=== PATIENT | female | born 1970 | race Hispanic/Latino ===

== ENCOUNTER → 2017-11-28 | Outpatient (CLI) | payer OTHER | LOC: MAMMO 10:17 | PROVIDERS: ATTEND Internal Medicine | DX: Z12.31 Encounter for screening mammogram for malignant neoplasm of breast (principal) | CPT/HCPCS: 77067 ==

== ENCOUNTER → 2017-12-11 | Outpatient (CLI) | payer OTHER ==
--- NOTE | 2017-12-12 08:48 | Diagnostic Imaging Report ---
#[id number] - USBRECOMLT ULTRASOUND OF THE LEFT BREAST : 12/11/2017 Comparison is made to exams dated: 11/28/2017 mammogram and 07/17/2016 mammogram - [facility]. Color flow and real-time ultrasound were performed on the entire left breast with scanning in all four quadrants, retroareolar region and the left axilla. There are at least 8 cystic lesions in the left breast with one at 10 o'clock 1 cm from the nipple measuring 9 x 7 x 10 mm with internal echoes likely internet sales representative of debris. This cystic lesion requires followup in six months. IMPRESSION: PROBABLY BENIGN - FOLLOW-UP RECOMMENDED A follow-up ultrasound in 6 months is recommended to demonstrate stability. The patient was notified of these findings and the need for followup. Ta Salinas Jr., D.O. cw/:12/11/2017 16:47:43 Radar Tester: JOSE BINGHAM RDMS, [facility] letter sent: Followup Recommended Ultrasound BI-RADS: 3 Probably benign
--- NOTE | 2017-12-12 08:48 | Diagnostic Imaging Report ---
#[id number] - USBRECOMRT ULTRASOUND OF THE RIGHT BREAST : 12/11/2017 Comparison is made to exams dated: 11/28/2017 mammogram and 07/17/2016 mammogram - [facility]. Color flow and real-time ultrasound were performed on the entire right breast with scanning in all four quadrants, retroareolar region and the right axilla. There are numerous (at least 11) cysts present in the right breast with a cluster of dominant cysts present at 12 o'clock. These cysts are palpable. One of the cysts at 12 o'clock has internal echoes likely representing debris or a solid lesion measuring 1.5 x 1.0 x 1.3 cm. This lesion requires followup in 6 months. IMPRESSION: PROBABLY BENIGN - FOLLOW-UP RECOMMENDED A follow-up ultrasound in 6 months is recommended to demonstrate stability. The patient was notified of these findings and the need for specific followup in 6 months. Ta Salinas Jr., D.O. cw/:12/11/2017 16:43:20 Ore Miner: JOSE BINGHAM RDMS, [facility] letter sent: Followup Recommended Ultrasound BI-RADS: 3 Probably benign
== END ==
LOC: US 12:35
PROVIDERS: ATTEND Internal Medicine
DX: N60.12 Diffuse cystic mastopathy of left breast (principal); N60.11 Diffuse cystic mastopathy of right breast

== ENCOUNTER → 2018-08-05 | Outpatient (CLI) | payer OTHER ==
--- NOTE | 2018-08-05 17:17 | Diagnostic Imaging Report ---
Hepatobiliary Scan with Gallbladder Ejection Fraction Clinical information: Cholelithiasis; intermittent abdominal pain x 6 months Technique: Following intravenous administration of 6.7 millicuries of Tc-99m mebrofenin, dynamic images of the abdomen in the anterior projection were obtained through 36 minutes. Sincalide (CCK analog) 1.1 micrograms was administered intravenously over 30 minutes with additional imaging for determination of gallbladder ejection fraction. Discussion: Perfusion of the liver is normal. Extraction of tracer by the liver parenchyma is normal. Tracer appears promptly within the biliary tract. The gallbladder begins to fill by 24 minutes post injection of tracer and fills adequately. Tracer is seen in the small bowel during the sincalide infusion. The gallbladder ejection fraction with sincalide is 13% (normal greater than 40%). Impression: 1. Filling of the gallbladder excludes acute cystic duct obstruction/acute cholecystitis. 2. The decreased gallbladder ejection fraction of 13% supports the clinical diagnosis of chronic cholecystitis/gallbladder dyskinesia. Signed by: Dr. Joyce Wilson M.D. on 08/05/2018 5:14 PM
== END ==
LOC: NM 08:34
PROVIDERS: ATTEND Internal Medicine
DX: K80.80 Other cholelithiasis without obstruction (principal)
CPT/HCPCS: 78227; 81025; A9537

== ENCOUNTER → 2018-09-10 | Day surgery (SDC) | payer OTHER ==
[2018-09-09 09:46] LABS: BASOPHILS % 0.4 % (0.0-1.0); EOSINOPHILS # (AUTO) 0.1 (0.0-0.4); EOSINOPHILS % 1.1 % (0.0-6.0); HEMOGLOBIN 15.8 g/dL (12.0-16.0); LYMPHOCYTES # (AUTO) 1.7 (1.0-3.2); MEAN CORPUSCULAR HEMOGLOBIN 30.9 pg (28-32); MEAN CORPUSCULAR HGB CONC 34.3 g/dL (31-35); MONOCYTES # (AUTO) 0.6 (0.2-0.8); MONOCYTES % 7.4 % (4.4-11.3); NEUTROPHILS # (AUTO) 5.4 (2.1-6.9); NEUTROPHILS % 68.7 % (38.7-80.0); PLATELET COUNT 314 x10e3/uL (140-360); RED BLOOD COUNT 5.11 x10e6/uL (3.6-5.1); RED CELL DISTRIBUTION WIDTH 12.3 % (11.7-14.4)
[2018-09-09 09:58] LABS: BILIRUBIN,URINE NEGATIVE (NEGATIVE); CLARITY,URINE SL CLOUDY (CLEAR); COLOR,URINE YELLOW (YELLOW); KETONES,URINE NEGATIVE (NEGATIVE); LEUKOCYTE ESTERASE ,URINE NEGATIVE (NEGATIVE); NITRITE,URINE NEGATIVE (NEGATIVE); PROTEIN,URINE DIPSTICK NEGATIVE (NEGATIVE); URINE UROBILINOGEN 0.2 mg/dL (0.2 - 1)
[2018-09-09 10:06] LABS: ALANINE AMINOTRANSFERASE 27 IU/L (0-55); ALBUMIN 4.1 g/dL (3.5-5.0); ALBUMIN/GLOBULIN RATIO 1.1 (0.8-2.0); ALKALINE PHOSPHATASE 93 IU/L (40-150); ANION GAP 13.2 mmol/L (8-16); BLOOD UREA NITROGEN 17 mg/dL (7-26); BUN/CREATININE RATIO 23 (6-25); CALCIUM 9.7 mg/dL (8.4-10.2); CARBON DIOXIDE 31 mmol/L (22-29); CHLORIDE 99 mmol/L (98-107); CREATININE, SERUM 0.75 mg/dL (0.57-1.11); EST GLOMERULAR FILTRATION RATE > 60 ML/MIN (60-); GLUCOSE 94 mg/dL (74-118); POTASSIUM 3.2 mmol/L (3.5-5.1); SODIUM 140 mmol/L (136-145)
[~2018-09-10] MED LIST: ADVIL100 M1 PO; AMLODIPINE BESY10 MG PO; BUPIVACAINE 0.25%/EPI 30ML SDV INJ ONE; DEXAMETHASONE SOD PHOS INJ 4 MG/ML VIAL ONE; FENTANYL CITRATE/PF 100MCG/2 ML INJ ONE; GLYCOPYRROLATE INJ 1MG/ 5 ML SYR ONE; HYDROCHLOROTHIA25 MG PO; HYDROCODONE/APAP 7.5MG-325MG 1 EA TAB ONE; KETOROLAC TROMETHAMINE 30 MG/ML VIAL ONE; LIDOCAINE HCL 2% LOCAL INJ 5 ML SDV VIAL INJ ONE; MIDAZOLAM HCL 2 MG/2 ML VIAL ONE; NEOSTIGMINE 5 MG/5ML SYR ONE; ONDANSETRON HCL INJ 2MG/ML 2ML 2 MG/ML VIAL ONE; PROPOFOL IV EMULSION 10 MG/ML 20 ML VIAL ONE; ROCURONIUM BROMIDE 10 MG/ML 5ML VIAL ONE; SEVOFLURANE INHAL SOLN 250 ML PEN BTL ONE
--- OUTSIDE RECORDS SUMMARY | 2018-09-10 08:20 | XMS REPORT | Clinical Summary ---
Author Author [facility] Address Unknown Phone Unavailable Care Team Providers Care Books Salesperson Name Role Phone Asked, No Pcp PCP Unavailable Allergies Comments Active Allergy Reactions Severity Noted Date Sulfa (Sulfonamide 08/19/2017 Antibiotics) Medications End Date Status Medication Sig Dispensed Refills Start Date Active amlodipine-benazepril Take 1 0 (LOTREL) 10-20 mg per capsule by capsule mouth daily. Active HYDROcodone-acetaminophen Take 1 tablet 0 (NORCO) 7.5-325 mg per by mouth 3 8 tablet (three) times a day. 09/18/2017 tamsulosin (FLOMAX) 0.4 Take 1 30 capsule 0 201 mg capsule,extended capsule (0.4 8 release 24hr mg total) by mouth daily for 30 days. Active Problems Not on file Social History Date Tobacco Use Types Packs/Day Years Used Never Smoker Smokeless Tobacco: Never Used Alcohol Use Drinks/Week oz/Week Comments Yes social Sex Assigned at Date Recorded Not on file Industry Job Start Date Occupation Not on file Not on file Not on file Travel End Travel History Travel Start No recent travel history available. Last Filed Vital Signs Not on file Plan of Treatment Health Maintenance Due Date Last Done Comments INFLUENZA VACCINE 10/02/2018 Results Not on fileafter 09/09/2017 Insurance Type Payer Benefit Subscriber ID Effective Phone Address Plan / Dates Group HMO AETNA AETNA xxxxxxxxxx 2017- HMO,POS,EP Present O, [facility] (Home) [place] [address] Advance Directives Patient has advance care planning documents on file. For more information, lakia rosado contact: Clyde De Leon [address] [place] [address]
--- OUTSIDE RECORDS SUMMARY | 2018-09-10 08:20 | XMS REPORT ---
[facility] Address Unknown Phone Unavailable Care Team Providers Care Manager State Name Role Phone TOMASA HILL Unavailable Unavailable Problems This patient has no known problems. Allergies, Adverse Reactions, Alerts This patient has no known allergies or adverse reactions. Medications This patient has no known medications. Results Test Description Test Time Test Comments Text Results Atomic Results Result Comments HEPTOBILIARY W PHARM 2018-08-05 17:12:00 [place] [address] Patient Name: JOSE ALBERTO ARMENDARIZ MR #: [id number] : 1970 Age/Sex: 47/F Req #: [id number] [facility] Physician: Ordered by: TOMASA HILL MD Report #: [id number] Location: [place] Room/Bed: Procedure: [id number] NM/HEPTOBILIARY W PHARM Exam Date: 08/05/18 Exam Time: 0845 REPORT STATUS: Signed Hepatobiliary Scan with Gallbladder Ejection Fraction Clinical information: Cholelithiasis; intermittent abdominal pain x 6 months Technique: Following intravenous administration of 6.7 millicuries of Tc-99m mebrofenin, dynamic images of the abdomen in the anterior projection were obtained through 36 minutes. Sincalide (CCK analog) 1.1 micrograms was administered intravenously over 30 minutes with additional imaging for determination of gallbladder ejection fraction. Discussion: Perfusion of the liver is normal. Extraction of tracer by the liver parenchyma is normal. Tracer appears promptly within the biliary tract. The gallbladder begins to fill by 24 minutes post injection of tracer and fills adequately. Tracer is seen in the small bowel during the sincalide infusion. The gallbladder ejection fraction with sincalide is 13% (normal greater than 40%). Impression: 1. Filling of the gallbladder excludes acute cystic duct obstruction/acute cholecystitis. 2. The decreased gallbladder ejection fraction of 13% supports the clinical diagnosis of chronic cholecystitis/gallbladder dyskinesia. Signed by: Dr. Gerry Wilson M.D. on 08/05/2018 5:14 PM Dictated By: GERRY WILSON MD 13 Transcribed By: GERMAN on 08/05/181713 COPY TO: TOMASA HILL MD US BREAST COMPLETE RIGHT 2017-12-11 13:37:00 [place] [address] Patient Name: JOSE ALBERTO ARMENDARIZ MR #: [id number] : 1970 Age/Sex: 47/F Req #: [id number] Adm Physician: Ordered by: TOMASA HILL MD Report #: [id number] Location: Room/Bed: Procedure: [id number] US/US BREAST COMPLETE RIGHT Exam Date: 12/11/17 Exam Time: 1255 REPORT STATUS: Signed #[id number] - USBRECOMRT ULTRASOUND OF THE RIGHT BREAST : 12/11/2017 Comparison is made to exams dated: 11/28/2017 mammogram and 07/17/2016 mammogram - [facility]. Color flow and real-time ultrasound were performed on the entire right breast with scanning in all four quadrants, retroareolar region and the right axilla. There are numerous (at least 11) cysts present in the right breast with a cluster of dominant cysts present at 12 o'clock. These cysts are palpable. One of the cysts at 12 o'clock has internal echoes likely representing debris or a solid lesion measuring 1.5 x 1.0 x 1.3 cm. This lesion requires followup in 6 months. IMPRESSION: PROBABLY BENIGN - FOLLOW-UP RECOMMENDED A follow-up ultrasound in 6 months is recommended to demonstrate stability. The patient was notified of these findings and the need for specific followup in 6 months. Marques Salinas Jr., D.O. cw/:12/11/2017 16:43:20 Programmer Analyst Consultant: JOSE BINGHAM [facility], [facility] letter sent: Followup Recommended Ultrasound BI-RADS: 3 Probably benign Dictated By: MARQUES SALINAS DO 42 COPY TO: TOMASA HILL MD US BREAST COMPLETE LEFT 2017-12-11 13:36:00 [place] [address] Patient Name: JOSE ALBERTO ARMENDARIZ MR #: [id number] : 1970 Age/Sex: 47/F Req #: [id number] Adm Physician: Ordered by: TOMASA HILL MD Report #: [id number] Location: Room/Bed: Procedure: [id number] US/US BREAST COMPLETE LEFT Exam Date: 12/11/17 Exam Time: 1430 REPORT STATUS: Signed #[id number] - USBRECOMLT ULTRASOUND OF THE LEFT BREAST : 12/11/2017 Comparison is made to exams dated: 11/28/2017 mammogram and 07/17/2016 mammogram - [facility]. Color flow and real-time ultrasound were performed on the entire left breast with scanning in all four quadrants, retroareolar region and the left axilla. There are at least 8 cystic lesions in the left breast with one at 10 o'clock 1 cm from the nipple measuring 9 x 7 x 10 mm with internal echoes likely customer loyalty representative of debris. This cystic lesion requires followup in six months. IMPRESSION: PROBABLY BENIGN - FOLLOW-UP RECOMMENDED A follow-up ultrasound in 6 months is recommended to demonstrate stability. The patient was notified of these findings and the need for followup. Marques Salinas Jr., D.O. cw/:12/11/2017 16:47:43 Programmer Analyst Consultant: JOSE BINGHAM RDRI, [facility] letter sent: Followup Recommended Ultrasound BI-RADS: 3 Probably benign Dictated By: MARQUES SALINAS DO 46 Transcribed By: SHIRLENE on 12/11/171646 COPY TO: TOMASA HILL MD MAMMOGRAPHY DIGITAL SCR BILAT 2017-11-28 10:55:00 [place] [address] Patient Name: JOSE ALBERTO ARMENDARIZ MR #: [id number] : 1970 Age/Sex: 47/F Req #: [id number] [facility] Physician: Ordered by: TOMASA HILL MD Report #: [id number] Location: MAMMO Room/Bed: Procedure: [id number] MG/MAMMOGRAPHY DIGITAL SCR BILAT Exam Date: 11/28/17 Exam Time: 1022 REPORT STATUS: Signed #[id number] - MGSCRBIL #BILATERAL DIGITAL SCREENING MAMMOGRAM WITH CAD: 11/28/2017 CLINICAL: Routine screening. Comparison is made to exams dated: 07/17/2016 mammogram, 07/25/2015 mammogram and 08/25/2014 mammogram - [facility]. Current study contains 4 films. The tissue of both breasts is extremely dense, which lowers the sensitivity of mammography. Current study was also evaluated with a Computer Aided Detection (CAD) system. Interval developement of several round masses that are likely cysts (patient has had cyst aspirated before). Bilateral breast ultrasound is recommended for confirmation of cysts. Scattered calcifications in both breasts are again noted. No significant masses, calcifications, or other findings are seen in either breast. IMPRESSION: INCOMPLETE: NEEDS ADDITIONAL IMAGING EVALUATION Interval developement of multiple round masses likely are cysts-bilateral breast ultrasound recommended for additional evaluation. The patient will be contacted by the Mammography Department to schedule this appointment. Marques Salinas Jr., D.O. cw/:11/29/2017 15:57:25 Programmer Analyst Consultant: Gerry TOBIN(R)(M), [facility] letter sent: Additional Imaging Needed Mammogram BI-RADS: 0 Indeterminate Dictated By: MARQUES SALINAS DO 5865 Transcribed By: SHIRLENE on 11/29/17 6163 COPY TO: TOMASA HILL MD
--- NOTE | 2018-09-10 13:39 | Operative Report ---
DATE OF PROCEDURE: 09/10/2018 SURGEON: Wade Patton MD PREOPERATIVE DIAGNOSES: Cholecystitis and cholelithiasis. POSTOPERATIVE DIAGNOSES: Cholecystitis and cholelithiasis. OPERATION PERFORMED: Laparoscopic cholecystectomy. TANYARD WORKER: Dr. Jovi Patton. ANESTHESIA: General endotracheal. COMPLICATIONS: None. ESTIMATED BLOOD LOSS: Minimal. PROCEDURE IN DETAIL: With the patient lying in bed in the supine position under good general endotracheal anesthesia, the abdomen was prepped with Betadine solution and draped in the usual manner. A Veress needle was introduced into the umbilicus and pneumoperitoneum was established without any difficulty. An 11 mm trocar was placed into the umbilicus and a 10 mm video laparoscope was placed into the intra-abdominal cavity. Under direct vision, three 5 mm trocars were placed in the right subcostal region. Video laparoscopy at this point revealed a gallbladder that had multiple adhesions, it was significantly distended and contained a large amount of stones. The rest of the abdominal exploration showed her to have an enlarged uterus. All of the adhesions to the gallbladder were then slowly and carefully taken down. The peritoneum overlying the neck of the gallbladder was then opened and the cystic duct was identified. The cystic duct was followed to its junction with the common duct. The cystic duct was then circumferentially dissected away from the common duct, doubly clipped and divided. The cystic artery was similarly doubly clipped and divided. The gallbladder was then slowly and carefully taken off the liver bed using the cautery scissors and perfect hemostasis was ascertained. The gallbladder was grasped through the umbilical port and removed without any difficulty. Video laparoscopy was then again carried out. The liver bed was found to be perfectly dry, all of the excess fluid was aspirated, the pneumoperitoneum was evacuated and all the trocars were removed under direct vision. The midline fascia at the umbilicus was then closed with a [id number]-jarae of 0 Vicryl. All layers were infiltrated on the way out with solution of 0.25% Marcaine. Subcutaneous tissue was approximated with 3-0 Vicryl and the skin was closed with subcuticular 5-0 Vicryl. Benzoin, Steri-Strips, and Band-Aids were applied. The sponge, lap, and needle count was correct. The patient tolerated the procedure well and returned to the recovery room in stable condition. MD CRYSTAL Light/MAICOL /[id number]
[2018-09-10 14:15] VITALS: BP 127/79
== END | disposition home or self-care (01) ==
LOC: OR 08:14
PROVIDERS: ATTEND Surgery
DX: K80.10 Calculus of gallbladder with chronic cholecystitis without obstruction (principal); N85.2 Hypertrophy of uterus; K82.8 Other specified diseases of gallbladder; I10 Essential (primary) hypertension; N20.0 Calculus of kidney; Z88.2 Allergy status to sulfonamides; Z01.810 Encounter for preprocedural cardiovascular examination; Z01.812 Encounter for preprocedural laboratory examination
CPT/HCPCS: 36415 ×2; 47562; 80053; 81003; 81025; 84132; 85025; 88304; 93005; C1766; J1100; J1885; J2001; J2250; J2405; J2704; J3490; J3010

== ENCOUNTER → 2018-11-07 | Outpatient (CLI) | payer OTHER ==
[~2018-11-07] MED LIST changes: -BUPIVACAINE 0.25%/EPI 30ML SDV INJ ONE; -DEXAMETHASONE SOD PHOS INJ 4 MG/ML VIAL ONE; -FENTANYL CITRATE/PF 100MCG/2 ML INJ ONE; -GLYCOPYRROLATE INJ 1MG/ 5 ML SYR ONE; -HYDROCODONE/APAP 7.5MG-325MG 1 EA TAB ONE; -KETOROLAC TROMETHAMINE 30 MG/ML VIAL ONE; -LIDOCAINE HCL 2% LOCAL INJ 5 ML SDV VIAL INJ ONE; -MIDAZOLAM HCL 2 MG/2 ML VIAL ONE; -NEOSTIGMINE 5 MG/5ML SYR ONE; -ONDANSETRON HCL INJ 2MG/ML 2ML 2 MG/ML VIAL ONE; -PROPOFOL IV EMULSION 10 MG/ML 20 ML VIAL ONE; -ROCURONIUM BROMIDE 10 MG/ML 5ML VIAL ONE; -SEVOFLURANE INHAL SOLN 250 ML PEN BTL ONE
--- NOTE | 2018-11-14 08:58 | Diagnostic Imaging Report ---
#[id number] - MGSCRBIL #BILATERAL DIGITAL SCREENING MAMMOGRAM WITH CAD: 11/07/2018 CLINICAL: Routine screening. Comparison is made to exams dated: 11/28/2017 mammogram and 07/17/2016 mammogram - [facility]. The tissue of both breasts is extremely dense, which lowers the sensitivity of mammography. Current study was also evaluated with a Computer Aided Detection (CAD) system. There are benign calcifications in both breasts. There also are benign masses in both breasts. No significant masses, calcifications, or other findings are seen in either breast. There has been no significant interval change. IMPRESSION: BENIGN There is no mammographic evidence of malignancy. A 1 year screening mammogram is recommended. The patient will be notified by letter of the results. SUSANNA kline/suleman:11/13/2018 09:39:45 Class A Lineman: Joyce TOBIN(Mehrdad)(Angela), [facility] letter sent: Compared to Prior B9 Mammogram BI-RADS: 2 Benign
== END ==
LOC: MAMMO 15:26
PROVIDERS: ATTEND Internal Medicine
DX: Z12.31 Encounter for screening mammogram for malignant neoplasm of breast (principal)
CPT/HCPCS: 77067

== ENCOUNTER → 2019-11-06 | Outpatient (CLI) | payer OTHER | LOC: MAMMO 08:26 | PROVIDERS: ATTEND Internal Medicine | DX: Z12.31 Encounter for screening mammogram for malignant neoplasm of breast (principal) | CPT/HCPCS: 77067 ==

== ENCOUNTER → 2021-03-15 | Outpatient (CLI) | payer OTHER | LOC: MAMMO 08:48 | PROVIDERS: ATTEND Internal Medicine | DX: Z12.31 Encounter for screening mammogram for malignant neoplasm of breast (principal) | CPT/HCPCS: 77067 ==

== ENCOUNTER → 2022-05-28 | Outpatient (CLI) | payer OTHER | LOC: MAMMO 11:35 | PROVIDERS: ATTEND Internal Medicine | DX: Z12.31 Encounter for screening mammogram for malignant neoplasm of breast (principal) | CPT/HCPCS: 77067 ==

== ENCOUNTER → 2024-08-25 | Outpatient (REF) | payer OTHER | LOC: MAMMO 08:54 | PROVIDERS: ATTEND Internal Medicine | DX: Z12.31 Encounter for screening mammogram for malignant neoplasm of breast (principal) | CPT/HCPCS: 77067 ==